=== PATIENT | female | born 2000 | race Caucasian/White ===

== ENCOUNTER 2024-07-17 03:59 | Inpatient (IN) | payer OTHER ==
[2024-07-17] MEDS ORDERED: Misoprostol 200 MCG TAB PR PRN (04:18)
[2024-07-17] MEDS ORDERED: Carboprost 250 MCG/ML AMP IM PRN (04:18)
[2024-07-17] MEDS ORDERED: Diphenoxylate HCl/Atropine Tablet PO PRN (04:18)
[2024-07-17] MEDS ORDERED: Ondansetron PF 4 MG/2 ML Vial IVP PRN (04:18)
[2024-07-17] MEDS ORDERED: hydrALAZINE 20 MG/ML VIAL SLOW IVP PRN ×2 (04:18→04:22)
[2024-07-17] MEDS ORDERED: Promethazine HCl 25 MG/ML VIAL IM PRN (04:18)
[2024-07-17] MEDS ORDERED: Methylergonovine 0.2 MG/ML VIAL IM PRN ×2 (04:18→04:22)
[2024-07-17] MEDS ORDERED: Tranexamic Acid 1,000 MG/10 ML VIAL IVP PRN (04:18)
[2024-07-17] MEDS ORDERED: Milk Of Magnesia 30 ML UDCUP PO PRN (04:22)
[2024-07-17] MEDS ORDERED: Misoprostol 200 MCG TAB VAG PRN (04:22)
[2024-07-17] MEDS ORDERED: Lanolin Ointment 7 GM TUBE TOP PRN (04:22)
[2024-07-17] MEDS ORDERED: Bisacodyl 10 MG SUPP PR PRN (04:22)
[2024-07-17 04:30] LABS: Analyzer IN Cardio CS NICU; Critical Notified By: CP.PH; Critical Notified Whom: NUR.SN9; RapidComm Collect By CBN
[2024-07-17] MEDS ORDERED: Oxytocin 30 units/NS 500 ML 500 ML IV SCH ×2 (04:30)
[2024-07-17 04:31] LABS: Analyzer IN Cardio CS NICU; Critical Notified By: CP.PH; Critical Notified Whom: NUR.SN9; RapidComm Collect By CBN; pH (Cord, venous) 7.087 (7.250-7.350)
[2024-07-17 04:54] LABS: Hematocrit 37.3 % (34.9-44.5); Hemoglobin 12.7 g/dL (12.0-15.5); Mean Corpuscular Hemoglobin 29.8 pg (27.0-33.0); Mean Corpuscular Volume 87.6 fL (81.6-98.3); Mean Platelet Volume 11.4 fL (7.4-10.4); Platelet Count 201 10x3/uL (150-450); RBC Distribution Width 12.2 % (11.5-14.5); Red Blood Cell (RBC) Count 4.26 10x6/uL (3.90-5.03); White Blood Cell (WBC) Count 13.8 10x3/uL (3.5-10.5)
[2024-07-17 05:28] LABS: Syphilis Antibody Nonreactive (Nonreactive); Syphilis Antibody Index 0.04 S/CO (<1.00 Non-Reactive)
[2024-07-17 05:29] LABS: HBsAg Index 0.18 S/CO (0-0.99); Hep B Surf Ag - L&D Non-Reactive S/CO (NonReactive)
[2024-07-17 05:57] VITALS: BMI 28.5
[2024-07-17] MEDS: Ibuprofen 800 MG TAB PO SCH (11:58)
[2024-07-17] MEDS: Prenatal Vitamin 1 TAB PO SCH (11:59)
[2024-07-17] MEDS: Lidocaine 1% (PF) 30 ML VIAL ONE ×2 (16:14)
[2024-07-17] MEDS: Boostrix 0.5 ML (Tdap) VIAL (>/=7 yrs of age) IM ONE (16:14)
[2024-07-17] MEDS: Oxytocin 30 units/NS 500 ML 500 ML ONE (16:14)
[2024-07-17] MEDS: Ferrous Sulfate 325 MG TAB PO SCH (16:14)
[2024-07-17] MEDS: Docusate 100 MG CAP PO SCH (16:15)
[2024-07-18] MEDS: Benzocaine-Menthol 82.5 ML CAN TOP PRN (09:24)
[2024-07-19 09:13] VITALS: BP 112/65; TEMP 98.2
== END 2024-07-19 12:45 | disposition home or self-care (01) | DRG 807 ==
LOC: CSHLD/OP 03:59 → CSHLD 04:18 → CSHPP 15:50
PROVIDERS: ADMIT Obstetrics & Gynecology; ATTEND Obstetrics & Gynecology
PROC: 10E0XZZ Delivery of Products of Conception, External Approach (ICD-10-PCS; principal; 2024-07-17)
PROC: 4A033R1 Measurement of Arterial Saturation, Peripheral, Percutaneous Approach (ICD-10-PCS; 2024-07-17)
PROC: 0KQM0ZZ Repair Perineum Muscle, Open Approach (ICD-10-PCS; 2024-07-17)
DX: O76 Abnormality in fetal heart rate and rhythm complicating labor and delivery (principal); Z37.0 Single live birth; Z3A.40 40 weeks gestation of pregnancy; O70.1 Second degree perineal laceration during delivery
CPT/HCPCS: 36415; 82805; 85027; 86780; 86850; 86900; 86901; 87340; 88307; 99285; J2590